=== PATIENT | male | born 1935 | race Caucasian/White ===

== ENCOUNTER 2017-11-10 19:44 | Inpatient (IN) | payer MEDICARE, SELFPAY ==
[2017-11-10 19:45] VITALS: BP 115/52; PULSE 58; RESP 19; TEMP 36.4; O2SAT 98; BMI 24.7
--- NOTE | 2017-11-10 20:00 | EKG12_ITS ---
Test Reason : Blood Pressure : / mmHG Vent. Rate : 060 BPM Atrial Rate : 060 BPM P-R Int : 182 ms QRS Dur : 088 ms QT Int : 456 ms P-R-T Axes : 041 -02 063 degrees QTc Int : 456 ms Normal sinus rhythm Normal ECG Confirmed by ZANE MITCHELL, ROSALIO ([id number]), editor news ZUNILDA SAUCEDO ([id number]) on 11/13/2017 2:05:42 PM Referred By: ALEK Confirmed By:ROSALIO DEGROOT MD
[2017-11-10 20:30] LABS: Absolute Lymphocyte Count 2.02 X10^3/ul (0.83-4.51); Absolute Neutrophil Count 8.3 X10^3/uL (2.0-7.7); Basophil# 0.03 X10^3/uL; Basophil% 0.3 % (0-1); Eosinophil# 0.27 X10^3/uL; Eosinophils% 2.4 % (0-5); Hematocrit 35.4 % (40-54); Hemoglobin 11.4 g/dl (13.0-16.5); Lymphocyte # 2.02 X10^3/ul (4.0); Lymphocyte % 18.1 % (19-41); Mean Corp Hgb Conc 32.2 g/gl (32-36); Mean Corpuscular Hgb 27.9 pg (27.0-32.0); Mean Corpuscular Volume 86.8 fL (80-94); Mean Platelet Vol. 10.6 fl (6.2-12.0); Monocyte# 0.51 X10^3/uL; Monocyte% 4.6 % (0-10); Neutrophil # 8.29 X10^3/uL (2.7-7.7); Neutrophil % 74.5 % (47-70); POSITIVE COUNT NO; POSITIVE DIFFERENTIAL NO; POSITIVE MORPHOLOGY NO; Platelet Count 200 K/mm3 (150-450); RBC Distribution Width CV 13.9 % (11.6-14.6); RBC Distribution Width SD 44.2 fl (35.1-43.9); Red Blood Count 4.08 M/mm3 (4.6-6.2); White Blood Count 11.1 K/mm3 (4.4-11.0)
--- NOTE | 2017-11-10 20:30 | RAD_ITS ---
STUDY: X-RAY CHEST REASON FOR EXAM: Male, 81 years old. WEAKNESS, SOB, FEELING LOUSY. TECHNIQUE: Single frontal view of the chest. COMPARISON: None. FINDINGS: Chronic appearing increased interstitial lung markings. There is an elevated left hemidiaphragm. There is no demonstrated pleural abnormality. Normal heart size. Normal mediastinum and nubia. Normal visualized pulmonary arteries. There is atherosclerotic calcification of the aortic arch with tortuosity. There are diffuse degenerative changes of the visualized thoracic spine. There is degenerative osteoarthritis of the bilateral shoulders. There is no demonstrated abnormality of the visualized soft tissue structures of the upper abdomen. RAD/Chest 1 View (Portable) IMPRESSION: There are no acute findings. Electronically Signed: Wagner Jha MD at 20:58 EDT , Service support ,
[2017-11-10 20:49] LABS: Anion Gap 10 (5-15); BUN 29 mg/dL (7-18); BUN/Creat Ratio 39.2 RATIO (10-20); Calcium,Total 8.3 mg/dL (8.5-10.1); Chloride 104 mmol/L (98-107); Creatinine, Serum 0.74 mg/dL (0.70-1.30); EST Glomerular Filtration Rate 108 mL/min (>60); Est Glom Filt Rate - Afr Amer 131 mL/min (>60); Estimated Creatinine Clearance 47.42 ml/min; Glucose 126 mg/dL (74-106); Potassium 3.6 mmol/L (3.5-5.1); Sodium Level 142 mmol/L (136-145)
--- NOTE | 2017-11-10 20:58 | ED.RN ---
pt had vagal episode after placing PIV- became nauseous, diaphoretic, HR paula to 30s and bp dropped to map in 50s. md velazquez
[2017-11-10 21:00] VITALS: BP 117/58; PULSE 60; RESP 22; O2SAT 98
[2017-11-10 21:21] VITALS: BP 131/55; BP 132/55; BP 138/59; PULSE 63; PULSE 64; PULSE 79
--- NOTE | 2017-11-10 21:58 | PCM.HP.STD ---
Problem List (1) Syncope and collapse Status: Acute (2) Hypertension Status: Chronic (3) Dyslipidemia Status: Chronic History of Present Illness Date of Admission: 11/10/17 Chief Complaint: Syncope today The patient is a 81 year old M with no significant past medical history but hypertension and dyslipidemia was brought in to ER after he had a syncopal episode that lasted for about 1-2 minutes. History taken from the patient's family and patient himself. Patient stood up from chair and walked about 30 yards and suddenly felt lightheaded, warm feeling and he passed out. He also was diaphoretic as per his and daughter, his eyes rolled up and his face was contorted. There was no myoclonic jerks repeated tonic-clonic seizure-like activity. He does not have history of epilepsy. Patient also has not eaten or drank water whole day. He is on HCTZ 25 mg daily at home. EMS vitals shows blood pressure 134/60 , Heart rate 71. EMS EKG strip shows normal sinus rhythm. [] In ED, as per the nurse, he he had bradycardia episode, heart rate in 40s and blood pressure dropped to 70s and was diaphoretic but he did not pass out. He denies having any cardiac lipid test. EKG shows normal sinus rhythm at 60 bpm. Chest x-ray does not show acute finding Past Medical History Past Medical History (Chronic Problems): Chronic Problems Hypertension (Chronic) Dyslipidemia (Chronic) Allergies No Known Allergies Allergy (Verified 11/10/17 19:51) Home Medications: Ambulatory Orders Medication Instructions Recorded Aspirin [Aspirin, Baby] 162 mg PO DAILY@0800 11/10/17 Hydrochlorothiazide [Hctz] 25 mg PO DAILY 11/10/17 Simvastatin 5 mg PO DAILY 11/10/17 Smoking Status: Former smoker Alcohol: None Drugs: None - *Family History Paternal History Items: No pertinent history Review of Systems Constitutional: Denies: Chills, Fever, Weight Change HEENT: Denies: Head Aches, Sinus Congestion, Sinus Drainage Cardiovascular: Reports: Light Headedness, Syncope. Denies: Chest Pain, Palpitations Respiratory: Denies: Cough, Shortness of breath at rest, Sputum production Gastrointestinal: Denies: Abdominal Pain, Nausea, Vomiting Genitourinary: Denies: Dysuria Musculoskeletal: Denies: Joint Pain, Joint Tenderness Skin: Denies: Rash, Wounds Neurological: Denies: Numbness, Tingling, Focal weakness Psychiatric: Denies: Anxiety, Depression, Homicidal Ideations, Suicidal Ideations Hematologic/ Lymphatic: Denies: Easy Bruising, Easy Bleeding VTE Information - Inpt Only VTE Present on Admission: No VTE Mechan Device Prophylaxis: SCD's VTE Pharm Prophylaxis ordered?: Yes Patient Problems: Active and Suspected Problems Syncope and collapse (Acute) - Physical Exam General: Alert, Oriented x3, Cooperative HEENT: Atraumatic, PERRLA, EOMI, Normocephalic Neck: Supple, No JVD, Negative Carotid Bruits Lungs: Clear to auscultation, Normal air movement Cardiovascular: Regular rate, Regular Rhythm, Normal S1, Normal S2, Murmur - Diastolic murmur present over aortic area and left sternal border. Possible S2 split Abdomen: Bowel Sounds Present, Soft, Non Tender Extremities: No edema, Capillary Refill Less than 3 Seconds Skin: No rashes, No breakdown Musculoskeletal: No Tenderness to Palpation of Joints or Extremities Neurological: Cranial nerves II-XII grossly intact Psych/Mental Status: Normal Affect, Appropriate Vital Signs Temp Pulse Resp BP Pulse Ox 97.6 F L 64 22 H 138/59 H 98 11/10/17 19:45 11/10/17 21:21 11/10/17 21:00 11/10/17 21:21 11/10/17 21:00 Oxygen Delivery Method Room Air Weight: 139 lb 12.8 oz Body Mass Index (BMI) 24.7 Laboratory Tests Past 24 Hrs 11/10/17 11/10/17 20:25 20:25 WBC 11.1 H RBC 4.08 L Hgb 11.4 L Hct 35.4 L MCV 86.8 MCH 27.9 MCHC 32.2 RDW 13.9 RDW Differential 44.2 H Plt Count 200 MPV 10.6 Immature Gran % (Auto) 0.100 Neut % (Auto) 74.5 H Lymph % (Auto) 18.1 L [place] % (Auto) 4.6 Eos % (Auto) 2.4 Baso % (Auto) 0.3 Absolute Neuts (auto) 8.3 H Absolute Lymphs (auto) 2.02 Total Counted Not Reportable Sodium 142 Potassium 3.6 Chloride 104 Carbon Dioxide 28.0 Anion Gap 10 BUN 29 H Creatinine 0.74 Estim Creat Clear Calc 47.42 Est GFR (MDRD) Af Amer 131 Est GFR (MDRD) Non-Af 108 BUN/Creatinine Ratio 39.2 H Glucose 126 H Calcium 8.3 L Troponin I < 0.02 Assessment/Plan Active and Suspected Problems Syncope and collapse (Acute) The patient is a 81 year old M with no significant past medical history but hypertension and dyslipidemia was brought in to ER after he had a syncopal episode that lasted for about 1-2 minutes. Patient stood up from chair and walked about 30 yards and suddenly felt lightheaded, warm feeling and he passed out. He also was diaphoretic as per his and daughter, his eyes rolled up and his face was contorted. There was no myoclonic jerks repeated tonic-clonic seizure-like activity. He does not have history of epilepsy. Patient was also nauseous and he had vomiting clear gastric content at home. Patient also has not eaten or drank water whole day. He is on HCTZ 25 mg daily at home. EMS vitals shows blood pressure 134/60 , Heart rate 71. EMS EKG strip shows normal sinus rhythm. [] In ED, as per the nurse, he he had bradycardia episode, heart rate in 40s and blood pressure dropped to 70s and was diaphoretic but he did not pass out. He denies having any cardiac related test. EKG shows normal sinus rhythm at 60 bpm. Chest x-ray does not show acute finding. 1. Syncope most probably vasovagal: It seems patient had vasovagal syncope in view of appropriate clinical setting including nausea, diaphoretic, bradycardia and hypotension. Patient is being admitted in PCU. Serial cardiac enzymes. 2D echo. ER physician Dr. Porter discussed with Dr. Shepherd and he agreed to see the patient. Patient's is mildly dehydrated and started on IV fluid normal saline 100/h. Orthostatic vitals in the ER does not show drop in blood pressure but heart rate went up from 64-79 on standing; mild dehydration. Repeat orthostatic vitals tomorrow a.m. 2. Chronic comorbidities include hypertension and dyslipidemia: Fasting peripheral tomorrow a.m. Hold HCTZ. DVT prophylaxis: On Lovenox 40 mils subcu daily and bilateral SCDs. Laboratory Results 11/10/17 20:25: WBC 11.1 H, RBC 4.08 L, Hgb 11.4 L, Hct 35.4 L, MCV 86.8, MCH 27.9, MCHC 32.2, RDW 13.9, RDW Differential 44.2 H, Plt Count 200, MPV 10.6, Immature Gran % (Auto) 0.100, Neut % (Auto) 74.5 H, Lymph % (Auto) 18.1 L, [place] % (Auto) 4.6, Eos % (Auto) 2.4, Baso % (Auto) 0.3, Absolute Neuts (auto) 8.3 H, Absolute Lymphs (auto) 2.02, Total Counted Not Reportable 11/10/17 20:25: Sodium 142, Potassium 3.6, Chloride 104, Carbon Dioxide 28.0, Anion Gap 10, BUN 29 H, Creatinine 0.74, Estim Creat Clear Calc 47.42, Est GFR (MDRD) Af Amer 131, Est GFR (MDRD) Non-Af 108, BUN/Creatinine Ratio 39.2 H, Glucose 126 H, Calcium 8.3 L, Troponin I < 0.02 Clinical Impression(s) from Imaging Studies Chest X-Ray 11/10/17 20:30 IMPRESSION: There are no acute findings. Electronically Signed: Wagner Jha MD at 20:58 EDT , Service support , This note was generated with [employer] dictation software. Every effort was made to ensure accuracy, however computerized special education science teacher mistakes may persist. Code Visit OBSV E&M: 63078 Initial observation care L3
--- NOTE | 2017-11-10 22:13 | HP.PCM_ITS ---
Problem List (1) Syncope and collapse Status: Acute (2) Hypertension Status: Chronic (3) Dyslipidemia Status: Chronic History of Present Illness Date of Admission: 11/10/17 Chief Complaint: Syncope today The patient is a 81 year old M with no significant past medical history but hypertension and dyslipidemia was brought in to ER after he had a syncopal episode that lasted for about 1-2 minutes. History taken from the patient's family and patient himself. Patient stood up from chair and walked about 30 yards and suddenly felt lightheaded, warm feeling and he passed out. He also was diaphoretic as per his and daughter, his eyes rolled up and his face was contorted. There was no myoclonic jerks repeated tonic-clonic seizure-like activity. He does not have history of epilepsy. Patient also has not eaten or drank water whole day. He is on HCTZ 25 mg daily at home. EMS vitals shows blood pressure 134/60 , Heart rate 71. EMS EKG strip shows normal sinus rhythm. [] In ED, as per the nurse, he he had bradycardia episode, heart rate in 40s and blood pressure dropped to 70s and was diaphoretic but he did not pass out. He denies having any cardiac lipid test. EKG shows normal sinus rhythm at 60 bpm. Chest x-ray does not show acute finding Past Medical History Past Medical History (Chronic Problems): Chronic Problems Hypertension (Chronic) Dyslipidemia (Chronic) Allergies No Known Allergies Allergy (Verified 11/10/17 19:51) Home Medications: Ambulatory Orders Medication Instructions Recorded Aspirin [Aspirin, Baby] 162 mg PO DAILY@0800 11/10/17 Hydrochlorothiazide [Hctz] 25 mg PO DAILY 11/10/17 Simvastatin 5 mg PO DAILY 11/10/17 Smoking Status: Former smoker Alcohol: None Drugs: None - *Family History Paternal History Items: No pertinent history Review of Systems Constitutional: Denies: Chills, Fever, Weight Change HEENT: Denies: Head Aches, Sinus Congestion, Sinus Drainage Cardiovascular: Reports: Light Headedness, Syncope. Denies: Chest Pain, Palpitations Respiratory: Denies: Cough, Shortness of breath at rest, Sputum production Gastrointestinal: Denies: Abdominal Pain, Nausea, Vomiting Genitourinary: Denies: Dysuria Musculoskeletal: Denies: Joint Pain, Joint Tenderness Skin: Denies: Rash, Wounds Neurological: Denies: Numbness, Tingling, Focal weakness Psychiatric: Denies: Anxiety, Depression, Homicidal Ideations, Suicidal Ideations Hematologic/ Lymphatic: Denies: Easy Bruising, Easy Bleeding VTE Information - Inpt Only VTE Present on Admission: No VTE Mechan Device Prophylaxis: SCD's VTE Pharm Prophylaxis ordered?: Yes Patient Problems: Active and Suspected Problems Syncope and collapse (Acute) - Physical Exam General: Alert, Oriented x3, Cooperative HEENT: Atraumatic, PERRLA, EOMI, Normocephalic Neck: Supple, No JVD, Negative Carotid Bruits Lungs: Clear to auscultation, Normal air movement Cardiovascular: Regular rate, Regular Rhythm, Normal S1, Normal S2, Murmur - Diastolic murmur present over aortic area and left sternal border. Possible S2 split Abdomen: Bowel Sounds Present, Soft, Non Tender Extremities: No edema, Capillary Refill Less than 3 Seconds Skin: No rashes, No breakdown Musculoskeletal: No Tenderness to Palpation of Joints or Extremities Neurological: Cranial nerves II-XII grossly intact Psych/Mental Status: Normal Affect, Appropriate Vital Signs Temp Pulse Resp BP Pulse Ox 97.6 F L 64 22 H 138/59 H 98 11/10/17 19:45 11/10/17 21:21 11/10/17 21:00 11/10/17 21:21 11/10/17 21:00 Oxygen Delivery Method Room Air Weight: 139 lb 12.8 oz Body Mass Index (BMI) 24.7 Laboratory Tests Past 24 Hrs 11/10/17 11/10/17 20:25 20:25 WBC 11.1 H RBC 4.08 L Hgb 11.4 L Hct 35.4 L MCV 86.8 MCH 27.9 MCHC 32.2 RDW 13.9 RDW Differential 44.2 H Plt Count 200 MPV 10.6 Immature Gran % (Auto) 0.100 Neut % (Auto) 74.5 H Lymph % (Auto) 18.1 L [place] % (Auto) 4.6 Eos % (Auto) 2.4 Baso % (Auto) 0.3 Absolute Neuts (auto) 8.3 H Absolute Lymphs (auto) 2.02 Total Counted Not Reportable Sodium 142 Potassium 3.6 Chloride 104 Carbon Dioxide 28.0 Anion Gap 10 BUN 29 H Creatinine 0.74 Estim Creat Clear Calc 47.42 Est GFR (MDRD) Af Amer 131 Est GFR (MDRD) Non-Af 108 BUN/Creatinine Ratio 39.2 H Glucose 126 H Calcium 8.3 L Troponin I < 0.02 Assessment/Plan Active and Suspected Problems Syncope and collapse (Acute) The patient is a 81 year old M with no significant past medical history but hypertension and dyslipidemia was brought in to ER after he had a syncopal episode that lasted for about 1-2 minutes. Patient stood up from chair and walked about 30 yards and suddenly felt lightheaded, warm feeling and he passed out. He also was diaphoretic as per his and daughter, his eyes rolled up and his face was contorted. There was no myoclonic jerks repeated tonic-clonic seizure-like activity. He does not have history of epilepsy. Patient was also nauseous and he had vomiting clear gastric content at home. Patient also has not eaten or drank water whole day. He is on HCTZ 25 mg daily at home. EMS vitals shows blood pressure 134/60 , Heart rate 71. EMS EKG strip shows normal sinus rhythm. [] In ED, as per the nurse, he he had bradycardia episode, heart rate in 40s and blood pressure dropped to 70s and was diaphoretic but he did not pass out. He denies having any cardiac related test. EKG shows normal sinus rhythm at 60 bpm. Chest x-ray does not show acute finding. 1. Syncope most probably vasovagal: It seems patient had vasovagal syncope in view of appropriate clinical setting including nausea, diaphoretic, bradycardia and hypotension. Patient is being admitted in PCU. Serial cardiac enzymes. 2D echo. ER physician Dr. Porter discussed with Dr. Shepherd and he agreed to see the patient. Patient's is mildly dehydrated and started on IV fluid normal saline 100/h. Orthostatic vitals in the ER does not show drop in blood pressure but heart rate went up from 64-79 on standing; mild dehydration. Repeat orthostatic vitals tomorrow a.m. 2. Chronic comorbidities include hypertension and dyslipidemia: Fasting peripheral tomorrow a.m. Hold HCTZ. DVT prophylaxis: On Lovenox 40 mils subcu daily and bilateral SCDs. Laboratory Results 11/10/17 20:25: WBC 11.1 H, RBC 4.08 L, Hgb 11.4 L, Hct 35.4 L, MCV 86.8, MCH 27.9, MCHC 32.2, RDW 13.9, RDW Differential 44.2 H, Plt Count 200, MPV 10.6, Immature Gran % (Auto) 0.100, Neut % (Auto) 74.5 H, Lymph % (Auto) 18.1 L, [place] % (Auto) 4.6, Eos % (Auto) 2.4, Baso % (Auto) 0.3, Absolute Neuts (auto) 8.3 H, Absolute Lymphs (auto) 2.02, Total Counted Not Reportable 11/10/17 20:25: Sodium 142, Potassium 3.6, Chloride 104, Carbon Dioxide 28.0, Anion Gap 10, BUN 29 H, Creatinine 0.74, Estim Creat Clear Calc 47.42, Est GFR ( MDRD) Af Amer 131, Est GFR (MDRD) Non-Af 108, BUN/Creatinine Ratio 39.2 H, Glucose 126 H, Calcium 8.3 L, Troponin I < 0.02 Clinical Impression(s) from Imaging Studies Chest X-Ray 11/10/17 20:30 IMPRESSION: There are no acute findings. Electronically Signed: Wagner Jha MD at 20:58 EDT , Service support , This note was generated with [employer] dictation software. Every effort was made to ensure accuracy, however computerized medical transcription editor mistakes may persist. Code Visit OBSV E&M: 67269 Initial observation care L3
[2017-11-10 22:39] VITALS: BP 131/64; PULSE 74; RESP 16; TEMP 36.6; O2SAT 97
[2017-11-10 22:40] VITALS: BP 154/64
[2017-11-10 22:45] VITALS: PULSE 76
--- NOTE | 2017-11-10 22:59 | ED.DCSUM_ITS ---
- ER Visit Summary Date of Service: 11/10/17 Chief Complaint: Syncope History of Present Illness: The patient is a [address] Del Real in [place]. He reports that he was at an event where he had been sitting for quite some time. He stood up to walk it on the floor and been standing for approximately 2 minutes. He became very lightheaded and felt as though is going to pass out. Family had him sit down. They report that shortly thereafter his eyes rolled back in his mouth was contorted. They report that this lasted approximately 10 seconds. Patient did not have a postictal episode. Did not bite his tongue. He had no urinary incontinence. Patient denied any preceding chest pain, palpitations, shortness of breath, or abdominal pain. However, during the episode he reports that he felt weak, nauseated, and vomited once. No blood in his emesis. He has never had anything like this before. Physical Examination: Vitals: 97.6, 115/52, 58, 19, 98% on room air which is not hypoxic. General: Well-nourished and well-developed. Head: Normocephalic atraumatic. Neck: Supple, no lymphadenopathy. No JVD. Nontender. Cardiovascular: Regular rate and rhythm. 2 out of 6 systolic murmur. Respiratory: No respiratory distress. Clear to auscultation bilaterally. Abdominal: Soft, nontender, nondistended, normal bowel sounds. No guarding, rebound, or peritoneal signs. Back: Nontender. Extremities: Nontender, no edema. Skin: Normal color, no rash. Neurologic: Alert and oriented ?3. Cranial nerves II through XII are intact. Normal strength and sensation. Psych: Normal affect. Test Results: EKG is sinus at 60 with no acute changes. There is no old EKG for comparison. Troponin is negative. Chem-7 is more for glucose 126, BUN of 29, calcium 8.3. CBC is marked for white count of 11.1 with 75 segmented neutrophils and 18 lymphocytes. H&H is 11.4 35.4. Chest x-ray shows eventration of left hemidiaphragm and no acute disease. Emergency Department Course and Treatment: While having the IV placed the patient bradycardia down into the 30s and his pressure dropped into the 70s. I suspect that this was vagal in etiology. However, he had a second episode while in the emergency department where he became very nauseated and lightheaded. This was not accompanied by any insult that would explain a vagal episode. Treatment Plan: Given the patient's age I feel that he warrants admission to the hospital and observation for a dysrhythmia as well as further evaluation. He was discussed with Dr. Villalobos. He was also discussed with Dr. Shepherd who asked that the patient be ruled out and have an echocardiogram. If these are unremarkable then he would need a stress echo prior to discharge. Disposition: To home in improved and stable condition. Impression: 1. Syncope. 2. Intermittent bradycardia. This note was generated with [employer] dictation software. It may contain incorrect words, spelling, and punctuation that were not noted in review of the chart prior to signing ED Disposition - Plan for ED Patient: Disposition: Acute [facility] Chief Complaint: Syncope
[2017-11-10] MEDS: 0.9% Normal Saline 1,000 ML 100 ML IV (23:05)
[2017-11-10] MEDS: Enoxaparin 40 MG/0.4 ML Syringe SC (23:05)
[2017-11-10 23:11] VITALS: BMI 24.4; BMI 24.8
[2017-11-11] VITALS (20 sets, daily range): BP systolic 81–119; BP diastolic 42–69; PULSE 35–103; RESP 12–18; TEMP 36.9–37.9; O2SAT 94–100
[2017-11-11] MEDS: Ondansetron 4 MG/2 ML Vial IV (01:15)
[2017-11-11] MEDS: 0.9% NaCl Peripheral Flush Adult/Peds IV ×3 (01:15→13:07)
--- NOTE | 2017-11-11 01:17 | NURSING ---
pt HR dropped to 35 for a few seconds then jumped up to 110s. Patient had emesis in bed and was found to be diaphoretic, lightheaded, and dizzy. Up to RR with aide and found to have a large amount of bloody stool.
[2017-11-11 02:01] LABS: Hematocrit 26.9 % (40-54); Hemoglobin 8.8 g/dl (13.0-16.5)
[2017-11-11] MEDS: 0.9% Normal Saline 1,000 ML 500 ML IV (02:01)
--- NOTE | 2017-11-11 03:27 | NURSING ---
Attempted orthostatic vital signs at this time. BP became dizzy when sitting up
[2017-11-11] MEDS: 0.9% Normal Saline 1,000 ML 999 ML IV (04:18)
[2017-11-11 05:16] LABS: Absolute Lymphocyte Count 0.82 X10^3/ul (0.83-4.51); Absolute Neutrophil Count 12.9 X10^3/uL (2.0-7.7); Basophil# 0.01 X10^3/uL; Basophil% 0.1 % (0-1); Eosinophil# 0.01 X10^3/uL; Eosinophils% 0.1 % (0-5); Hematocrit 22.8 % (40-54); Hemoglobin 7.3 g/dl (13.0-16.5); Lymphocyte # 0.82 X10^3/ul (4.0); Lymphocyte % 5.6 % (19-41); Mean Corpuscular Hgb 28.6 pg (27.0-32.0); Mean Corpuscular Volume 89.4 fL (80-94); Mean Platelet Vol. 11.3 fl (6.2-12.0); Monocyte# 0.89 X10^3/uL; Monocyte% 6.1 % (0-10); Neutrophil # 12.93 X10^3/uL (2.7-7.7); Neutrophil % 87.9 % (47-70); Platelet Count 159 K/mm3 (150-450); RBC Distribution Width CV 13.6 % (11.6-14.6); RBC Distribution Width SD 42.5 fl (35.1-43.9); Red Blood Count 2.55 M/mm3 (4.6-6.2); White Blood Count 14.7 K/mm3 (4.4-11.0)
[2017-11-11 05:17] LABS: POSITIVE COUNT NO; POSITIVE DIFFERENTIAL NO; POSITIVE MORPHOLOGY NO
[2017-11-11 05:55] LABS: International Normalized Ratio 1.3; Prothrombin Time (Protime)PT. 16.5 SECONDS (11.7-14.9)
--- NOTE | 2017-11-11 05:55 | ECHOD_ITS ---
Reason For Study: syncope Procedure This was a 2D Doppler, Color Flow transthoracic echocardiogram. The study was technically difficult. Due to diminshed accoustic windows. Exam performed portable in patient room. Left Ventricle Normal LV size. Left ventricular systolic function is normal. The estimated ejection fraction is 65 %. Transmitral diastolic flow velocities suggest mild (stage 1) diastolic dysfunction (reversed pattern). No regional wall motion abnormalities noted. Tricuspid Valve Normal tricuspid valve. Mild (1+) tricuspid valve insufficiency. Pulmonary artery systolic pressure is 35 mmHg. Aortic Valve Trisinus/trileaflet aortic valve. Peak aortic valve gradient 28 mmHg. Mean aortic valve gradient 14 mmHg. Mild aortic stenosis. Mild (1+) eccentric aortic valve insufficiency. Pulmonic Valve Normal pulmonic valve. Great Vessels Normal aortic root. The pulmonary artery is normal size. Normal inferior vena cava. Pericardium/Pleural No pericardial effusion. MMode/2D Measurements & Calculations LVIDd: 3.5 cm IVSd: 0.99 cm LVOT diam: 2.1 cm LVIDs: 2.5 cm LVPWd: 0.87 cm LVOT area: 3.4 cm2 RVDd: 3.1 cm FS: 30.7 % LAV(MOD-bp): 65.3 ml LA A4 area: 20.7 cm2 LAV(MOD-bp) Indexed: 38.6 ml/m2 LAV(MOD-sp2): 61.7 ml LAV(MOD-sp4): 61.9 ml Doppler Measurements & Calculations MV E max rojas: 54.2 cm/sec Lat Peak E' Rojas: 13.3 cm/sec Med Peak E' Rojas: 9.6 cm/sec MV A max rojas: 69.6 cm/sec E/E' lat: 4.1 E/E' med: 5.7 MV E/A: 0.78 Ao V2 max: 262.8 cm/sec AI max rojas: 415.4 cm/sec LV V1 max: 143.2 cm/sec Ao max P.6 mmHg AI max P.2 mmHg LV V1 max P.2 mmHg Ao V2 mean: 171.4 cm/sec AI dec slope: 344.5 cm/sec2 LV V1 mean P.0 mmHg Ao mean P.4 mmHg AI P1/2t: 353.2 msec LV V1 mean: 93.6 cm/sec Ao V2 VTI: 50.9 cm LV V1 VTI: 29.0 cm THOM(I,D): 1.9 cm2 THOM(V,D): 1.8 cm2 SV(LVOT): 98.2 ml PA V2 max: 135.4 cm/sec TR max rojas: 281.2 cm/sec TR max P.6 mmHg Interpretation Summary Normal LV size. The estimated ejection fraction is 65 %. Transmitral diastolic flow velocities suggest mild (stage 1) diastolic dysfunction (reversed pattern). Left ventricular systolic function is normal. Mild aortic stenosis. Mild (1+) eccentric aortic valve insufficiency. Mild (1+) tricuspid valve insufficiency. Ordering Physician: Harsha Villalobos Referring Physician: Jerzy Hubbard Performed By: Yolanda Parker, ARIADNE, RVT
[2017-11-11 06:19] LABS: Anion Gap 6 (5-15); BUN 33 mg/dL (7-18); BUN/Creat Ratio 55.5 RATIO (10-20); Chloride 112 mmol/L (98-107); Cholesterol 63 mg/dL (200); EST Glomerular Filtration Rate 139 mL/min (>60); Est Glom Filt Rate - Afr Amer 168 mL/min (>60); Estimated Creatinine Clearance 49.33 ml/min; Glucose 118 mg/dL (74-106); High Density Lipoprotein 20 mg/dL; Potassium 4.2 mmol/L (3.5-5.1); Sodium Level 145 mmol/L (136-145); Thyroid Stim Hormone (TSH) 0.57 uIU/mL (0.358-3.74); Triglycerides 109 mg/dL; Very Low Density Lipoprotein 22 mg/dL (5-40)
--- NOTE | 2017-11-11 08:23 | PCM.CONS.GEN ---
Reason for Consult Date of Consultation: 11/11/17 History of Present Illness: The patient is a 81 year old M who became syncopal and vomited coffee grounds [facility] Both a PCP and the nurse taking care of the patient today provided emergency care to the the patient at the event. He was transported by EMS to [facility]. He has a history of ASA use - 81mg x 2 daily and took lodine last week for lower back pain. since admission, his Hgb has dropped from 11 to 7. He is being transfused currently. his INR is normal. He still feels dizzy when he sits up. He denies melena prior to this event. He has had melena and maroon stools x3 since admission. He has not had a prior upper or lower endoscopy Past Medical History Past Medical History (Chronic Problems): Chronic Problems Hypertension (Chronic) Dyslipidemia (Chronic) Allergies No Known Allergies Allergy (Verified 11/10/17 19:51) Home Medications: Ambulatory Orders Medication Instructions Recorded Aspirin [Aspirin, Baby] 162 mg PO DAILY@0800 11/10/17 Hydrochlorothiazide [Hctz] 25 mg PO DAILY 11/10/17 RX: Simvastatin 5 mg PO DAILY 11/10/17 Amlodipine Besylate [Norvasc] 5 mg PO DAILY 11/11/17 DiphenhydrAMINE [Benadryl] 25 mg PO QHS PRN PRN 11/11/17 Smoking Status: Never smoker Alcohol: None Drugs: None - *Family History Paternal History Items: No pertinent history Review of Systems Constitutional: Denies: Chills, Fever, Weight Change HEENT: Denies: Head Aches, Sinus Congestion, Sinus Drainage Cardiovascular: Denies: Chest Pain, Palpitations Respiratory: Denies: Cough, Shortness of breath at rest, Sputum production Gastrointestinal: Reports: Hematemesis, Melena. Denies: Abdominal Pain, Nausea, Vomiting Genitourinary: Denies: Dysuria Musculoskeletal: Denies: Joint Pain, Joint Tenderness Skin: Denies: Rash, Wounds Neurological: Denies: Numbness, Tingling, Focal weakness Psychiatric: Denies: Anxiety, Depression, Homicidal Ideations, Suicidal Ideations Hematologic/ Lymphatic: Denies: Easy Bruising, Easy Bleeding Patient Problems: Active and Suspected Problems Syncope and collapse (Acute) - Physical Exam General: Alert, Oriented x3, Cooperative, - - pale HEENT: Atraumatic Lungs: Clear to auscultation, Normal air movement Cardiovascular: Regular rate, No murmurs Abdomen: Bowel Sounds Present, Soft, Non Tender, Hyperactive Bowel Sounds Vital Signs Temp Pulse Resp BP Pulse Ox 98.9 F 87 16 95/42 L 98 11/11/17 07:06 11/11/17 07:06 11/11/17 07:06 11/11/17 07:06 11/11/17 07:06 Oxygen Delivery Method Room Air Intake and Output for Last 24 Hours 11/09/17 11/10/17 11/11/17 23:59 23:59 23:59 Intake Total 2207.6 / 2207.6 Output Total 275 / 275 Balance 1932.6 / 1932.6 Assessment/Plan Active and Suspected Problems Syncope and collapse (Acute) GI bleed - likely gastric ulcer. The patient is currently receiving PRBC and has IV PPI ordered. We will continue his resuscitation. I will plan for upper endoscopy following resection. If he becomes increasingly hypotensive, will then perform emergency upper endoscopy. The patient understands the risks, benefits, possible complications and alternatives and agrees to the procedure. We will plan for colonoscopy as an outpatient at a later date
--- NOTE | 2017-11-11 08:30 | CON.PCM_ITS ---
Reason for Consult Date of Consultation: 11/11/17 History of Present Illness: The patient is a 81 year old M who became syncopal and vom[facility] coffee [facility] Both a PCP and the nurse taking care of the patient today provided emergency care to the the patient at the event. He was transported by EMS to [facility]. He has a history of ASA use - 81mg x 2 daily and took lodine last week for lower back pain. since admission, his Hgb has dropped from 11 to 7. He is being transfused currently. his INR is normal. He still feels dizzy when he sits up. He denies melena prior to this event. He has had melena and maroon stools x3 since admission. He has not had a prior upper or lower endoscopy Past Medical History Past Medical History (Chronic Problems): Chronic Problems Hypertension (Chronic) Dyslipidemia (Chronic) Allergies No Known Allergies Allergy (Verified 11/10/17 19:51) Home Medications: Ambulatory Orders Medication Instructions Recorded Aspirin [Aspirin, Baby] 162 mg PO DAILY@0800 11/10/17 Hydrochlorothiazide [Hctz] 25 mg PO DAILY 11/10/17 RX: Simvastatin 5 mg PO DAILY 11/10/17 Amlodipine Besylate [Norvasc] 5 mg PO DAILY 11/11/17 DiphenhydrAMINE [Benadryl] 25 mg PO QHS PRN PRN 11/11/17 Smoking Status: Never smoker Alcohol: None Drugs: None - *Family History Paternal History Items: No pertinent history Review of Systems Constitutional: Denies: Chills, Fever, Weight Change HEENT: Denies: Head Aches, Sinus Congestion, Sinus Drainage Cardiovascular: Denies: Chest Pain, Palpitations Respiratory: Denies: Cough, Shortness of breath at rest, Sputum production Gastrointestinal: Reports: Hematemesis, Melena. Denies: Abdominal Pain, Nausea , Vomiting Genitourinary: Denies: Dysuria Musculoskeletal: Denies: Joint Pain, Joint Tenderness Skin: Denies: Rash, Wounds Neurological: Denies: Numbness, Tingling, Focal weakness Psychiatric: Denies: Anxiety, Depression, Homicidal Ideations, Suicidal Ideations Hematologic/ Lymphatic: Denies: Easy Bruising, Easy Bleeding Patient Problems: Active and Suspected Problems Syncope and collapse (Acute) - Physical Exam General: Alert, Oriented x3, Cooperative, - - pale HEENT: Atraumatic Lungs: Clear to auscultation, Normal air movement Cardiovascular: Regular rate, No murmurs Abdomen: Bowel Sounds Present, Soft, Non Tender, Hyperactive Bowel Sounds Vital Signs Temp Pulse Resp BP Pulse Ox 98.9 F 87 16 95/42 L 98 11/11/17 07:06 11/11/17 07:06 11/11/17 07:06 11/11/17 07:06 11/11/17 07:06 Oxygen Delivery Method Room Air Intake and Output for Last 24 Hours 11/09/17 11/10/17 11/11/17 23:59 23:59 23:59 Intake Total 2207.6 / 2207.6 Output Total 275 / 275 Balance 1932.6 / 1932.6 Assessment/Plan Active and Suspected Problems Syncope and collapse (Acute) GI bleed - likely gastric ulcer. The patient is currently receiving PRBC and has IV PPI ordered. We will continue his resuscitation. I will plan for upper endoscopy following resection. If he becomes increasingly hypotensive, will then perform emergency upper endoscopy. The patient understands the risks, benefits, possible complications and alternatives and agrees to the procedure. We will plan for colonoscopy as an outpatient at a later date
[2017-11-11] MEDS: 0.9% Normal Saline 1,000 ML 100 ML IV ×2 (08:59→20:39)
--- NOTE | 2017-11-11 11:56 | PCM.PROGNOTE ---
Patient Problems: Active and Suspected Problems Syncope and collapse (Acute) Subjective: Patient seen and examined. States he did not sleep overnight due to severe dizziness when closing his eyes. Denies chest pain, shortness of breath. Denies nausea, vomiting. Had a bowel movement last evening which he states was red in color. Denies further bowel movement. Denies abdominal pain. Patient states he feels improved currently without further dizziness or lightheadedness. - Physical Exam General: Alert, Oriented x3, Cooperative HEENT: Atraumatic, PERRLA, EOMI, Normocephalic Neck: Supple, No JVD, Negative Carotid Bruits Lungs: Clear to auscultation, Normal air movement Cardiovascular: Regular rate, Regular Rhythm, Normal S1, Normal S2, Murmur Abdomen: Bowel Sounds Present, Soft, Non Tender, Non-Distended Extremities: No clubbing, No cyanosis, No edema, Capillary Refill Less than 3 Seconds Skin: No rashes, No breakdown Musculoskeletal: No Tenderness to Palpation of Joints or Extremities Neurological: Cranial nerves II-XII grossly intact Psych/Mental Status: Normal Affect, Appropriate Vital Signs Temp Pulse Resp BP Pulse Ox 100.3 F H 83 18 100/48 L 95 11/11/17 10:45 11/11/17 10:45 11/11/17 10:45 11/11/17 10:45 11/11/17 10:45 Oxygen Delivery Method Room Air Weight: 63.049 kg Intake and Output for Last 24 Hours 11/09/17 11/10/17 11/11/17 23:59 23:59 23:59 Intake Total 2607.6 / 2607.6 Output Total 275 / 275 Balance 2332.6 / 2332.6 Laboratory Tests Past 24 Hrs 11/11/17 10:25 Troponin I < 0.02 Medical Necessity - Tobacco Use Smoking Status: Never smoker Assessment/Plan Active and Suspected Problems Syncope and collapse (Acute) Patient is an 81-year-old male admitted 11/10/17 due to syncopal episode. He has a past medical history of hypertension and hyperlipidemia. 1. Acute blood loss anemia secondary to suspected upper GI bleed-Dr. Liu consulted. Suspecting gastric ulcer. Continue IV PPI. Patient receiving 2 units packed red blood cells for hemoglobin of 7.3. Repeat H&H this afternoon and again in the morning. Plan for EGD tomorrow and colonoscopy as outpatient at a later date. 2. Syncope-suspect secondary to #1. Troponin negative ?4. Orthostatic vitals negative. Echocardiogram ordered for morning. 3. Hypertension-antihypertensive regimen on hold given hypotension. Resume home amlodipine and HCTZ regimen when appropriate. 4. Hyperlipidemia-continue statin. DVT prophylaxis-SCDs, pharmacologic prophylaxis contraindicated given acute bleed. This patient was seen by PAMELA Downing under the supervision of Dr. Lake.
[2017-11-11 14:35] LABS: Hematocrit 24.4 % (40-54); Hemoglobin 8.5 g/dl (13.0-16.5)
[2017-11-11 18:59] LABS: Hematocrit 25.7 % (40-54); Hemoglobin 8.8 g/dl (13.0-16.5)
[2017-11-12] VITALS (28 sets, daily range): BP systolic 117–143; BP diastolic 37–63; PULSE 63–91; RESP 14–18; TEMP 36.4–37.3; O2SAT 93–99; BMI 23.8
--- NOTE | 2017-11-12 | IMM_PTH ---
PATIENT: ZINA REDMOND LOC: [facility] U#:[id number] AGE/SX: 81/M ROOM: [facility] RE11/11/[address]: Dr. Mike Dawn DO : 1935 BED: 1 DIS: 11/13/2017 SPEC #: [id number] RECD: 11/14/17 11:16 STATUS: SOUT REQ #: [id number] IZZY: 11/12/17 00:[address]: Stephen Liu DEPT: IMMUNOHISTOCHEMISTRY RECD BY: Joycelyn Brown ENTERED: 11/14/17 11:17 SP TYPE: IMMUNO OTHR DR: MD Dr. Mike Booker DO Dr. Prakash Chand, MD Dr. Patrick Furness, MD Dr. Richard Guttman, MD Tissues: Stomach, NOS Procedures: H Pylori (initial) Comments: @ Ordering doctor for H.PYLORI edited from to DR.RGUTTM Mejia by KEKE at 11/14/17 1125 @ Submitting doctor edited from to DR.RGUTTM Mejia by KEKE at 11/14/17 1125 PHYSICIAN & INSTITUTION [place] [id number] SPECIMEN INFORMATION: Tissue Source: Antral biopsy Clinical Info: UGIB Specimen Number: [id number] CPT code: 24190 METHODOLOGY: Deparaffinized sections of prefer/formalin-fixed tissue or PAP/DQ stained slides are incubated with monoclonal/polyclonal antibodies/oligonucleotide probes. Localization is made via biotin free immunoperoxidase method. Appropriate controls are performed and reacted as expected. Results on target cell population are indicated in the following table: RESULTS: ANTIBODY / CLONE RESULT H Pylori (polyclonal) negative These tests were developed and their performance characteristics determined by [facility]. They may not have been cleared or approved by the U.S. Food and Drug Administration. The FDA has determined that such clearance or approval is not necessary. INTERPRETATION: Antrum, biopsy: Negative for Helicobacter pylori organisms. OLGA:antoinette 11/15/17
--- NOTE | 2017-11-12 | EGD_PTH ---
PATIENT: ZINA REDMOND LOC: [facility] U#:[id number] AGE/SX: 81/M ROOM: [facility] RE11/11/[address]: Dr. Mike Dawn DO : 1935 BED: 1 DIS: 11/13/2017 SPEC #: [id number] RECD: 11/12/17 08:11 STATUS: GARRICK REQ #: [id number] IZZY: 11/12/17 00:[address]: Stephen Liu DEPT: SURGICAL PATHOLOGY RECD BY: Raza Hernandez ENTERED: 11/13/17 08:11 SP TYPE: EGD BIOPSY OTHR DR: MD Dr. Mike Booker DO Dr. Prakash Chand, MD Dr. Patrick Furness, MD Dr. Richard Guttman, MD Tissues: Gastric mucous membrane Procedures: Surgery Specimen Level IV Comments: @ Ordering doctor for SUIV edited from to DR.RGUTTM Mejia by KEKE at 11/14/17 1044 @ Submitting doctor edited from to @ by HAYDEROD at 11/14/17 1044 HEADER OPERATION: EGD PRE-OP DIAGNOSIS: UGIB TISSUE SUBMITTED: Antral biopsy for path MICROSCOPIC DIAGNOSIS Antrum, biopsy: Mild gastritis. OLGA:antoinette 11/14/17 COMMENT The results of immunohistochemistry for Helicobacter pylori will be reported separately ([id number]). MICROSCOPIC DESCRIPTION Slides are reviewed. The specimen shows fragments of gastric mucosa with chronic inflammatory cell infiltrates in the lamina propria consisting of lymphocytes and plasma cells, consistent with mild chronic gastritis. GROSS DESCRIPTION Received in fixative is one container labeled with the patient's name and designated antrum. The specimen consists of one irregular fragment of light wilkins soft tissue that measures 0.4 x 0.2 x 0.1 cm. The specimen is totally submitted in one cassette. / RY:antoinette 11/13/17 TC:3 [facility]: [id number]
[2017-11-12 00:26] LABS: Hematocrit 23.2 % (40-54); Hemoglobin 7.8 g/dl (13.0-16.5)
[2017-11-12 06:45] LABS: Absolute Lymphocyte Count 2.03 X10^3/ul (0.83-4.51); Absolute Neutrophil Count 5.6 X10^3/uL (2.0-7.7); Basophil# 0.02 X10^3/uL; Basophil% 0.2 % (0-1); Eosinophils% 3.4 % (0-5); Hematocrit 27.9 % (40-54); Hemoglobin 9.2 g/dl (13.0-16.5); Lymphocyte # 2.03 X10^3/ul (4.0); Lymphocyte % 22.9 % (19-41); Mean Corpuscular Hgb 28.7 pg (27.0-32.0); Mean Corpuscular Volume 86.9 fL (80-94); Mean Platelet Vol. 10.7 fl (6.2-12.0); Monocyte# 0.89 X10^3/uL; Neutrophil # 5.62 X10^3/uL (2.7-7.7); Neutrophil % 63.3 % (47-70); Platelet Count 119 K/mm3 (150-450); RBC Distribution Width CV 14.6 % (11.6-14.6); RBC Distribution Width SD 44.5 fl (35.1-43.9); Red Blood Count 3.21 M/mm3 (4.6-6.2); White Blood Count 8.9 K/mm3 (4.4-11.0)
[2017-11-12 06:55] LABS: POSITIVE COUNT NO; POSITIVE DIFFERENTIAL NO; POSITIVE MORPHOLOGY NO
[2017-11-12 06:58] LABS: Anion Gap 7 (5-15); BUN 24 mg/dL (7-18); BUN/Creat Ratio 40.4 RATIO (10-20); Calcium,Total 7.4 mg/dL (8.5-10.1); Chloride 116 mmol/L (98-107); Creatinine, Serum 0.59 mg/dL (0.70-1.30); EST Glomerular Filtration Rate 139 mL/min (>60); Est Glom Filt Rate - Afr Amer 168 mL/min (>60); Estimated Creatinine Clearance 49.33 ml/min; Glucose 86 mg/dL (74-106); Potassium 3.5 mmol/L (3.5-5.1); Sodium Level 147 mmol/L (136-145)
[2017-11-12] MEDS: 0.9% Normal Saline 1,000 ML 100 ML IV ×2 (08:15→15:57)
--- NOTE | 2017-11-12 11:07 | CASEMGMT ---
Addendum entered by Bebe Freire 11/12/17 12:44: 1200 Pt is still out of the dept for testing. This RN CM will attempt later. Scott BENITEZ CM Original Note: This RN CM to room to complete CM assessment and pt is out of the dept for testing at this time. Will attempt again later. Scott BENITEZ CM
--- NOTE | 2017-11-12 11:22 | EKG12_ITS ---
Test Reason : Blood Pressure : / mmHG Vent. Rate : 077 BPM Atrial Rate : 077 BPM P-R Int : 180 ms QRS Dur : 088 ms QT Int : 392 ms P-R-T Axes : 036 006 250 degrees QTc Int : 443 ms Normal sinus rhythm Nonspecific T wave abnormality Abnormal ECG Confirmed by ZANE MITCHELL, ROSALIO ([id number]), supervising film or videotape editor ZUNILDA SAUCEDO ([id number]) on 11/16/2017 3:57:39 PM Referred By: BENITEZ Confirmed By:ROSALIO DEGROOT MD
--- NOTE | 2017-11-12 11:23 | PCM.PROGNOTE ---
<Taylor Isaacs - Last Filed: 11/12/17 11:46> Patient Problems: Active and Suspected Problems Syncope and collapse (Acute) Subjective: Patient seen and examined. Denies further dizziness, lightheadedness. States his stools continue to be dark in color. Denies chest pain, shortness of breath. States he feels well this morning. No acute events overnight. - Physical Exam General: Alert, Oriented x3, Cooperative, No apparent distress HEENT: Atraumatic, PERRLA, EOMI, Normocephalic Oral: Dry Mucosa Neck: Supple, No JVD, Negative Carotid Bruits Lungs: Clear to auscultation, Normal air movement Cardiovascular: Regular rate, Regular Rhythm, Normal S1, Normal S2, Murmur Abdomen: Bowel Sounds Present, Soft, Non Tender, Non-Distended Extremities: No clubbing, No cyanosis, No edema, Capillary Refill Less than 3 Seconds Skin: No rashes, No breakdown Musculoskeletal: No Tenderness to Palpation of Joints or Extremities Neurological: Cranial nerves II-XII grossly intact Psych/Mental Status: Normal Affect, Appropriate Vital Signs Temp Pulse Resp BP Pulse Ox 98.9 F 78 16 127/56 H 94 11/12/17 11:14 11/12/17 11:20 11/12/17 11:20 11/12/17 11:20 11/12/17 11:20 Oxygen Delivery Method Room Air Weight: 63.049 kg Body Mass Index (BMI) 23.8 Intake and Output for Last 24 Hours 11/10/17 11/11/17 11/12/17 23:59 23:59 23:59 Intake Total 4314.6 / 4314.6 486 / 486 Output Total 850 / 850 400 / 400 Balance 3464.6 / 3464.6 86 / 86 Laboratory Tests Past 24 Hrs 11/11/17 11/11/17 11/12/17 14:00 18:40 00:14 WBC RBC Hgb 8.5 L 8.8 L 7.8 L Hct 24.4 L 25.7 L 23.2 L MCV MCH MCHC RDW RDW Differential Plt Count MPV Immature Gran % (Auto) Neut % (Auto) Lymph % (Auto) Douglas % (Auto) Eos % (Auto) Baso % (Auto) Absolute Neuts (auto) Absolute Lymphs (auto) Total Counted Sodium Potassium Chloride Carbon Dioxide Anion Gap BUN Creatinine Estim Creat Clear Calc Est GFR (MDRD) Af Amer Est GFR (MDRD) Non-Af BUN/Creatinine Ratio Glucose Calcium 11/12/17 11/12/17 06:26 06:26 WBC 8.9 RBC 3.21 L Hgb 9.2 L Hct 27.9 L MCV 86.9 MCH 28.7 MCHC 33.0 RDW 14.6 RDW Differential 44.5 H Plt Count 119 L MPV 10.7 Immature Gran % (Auto) 0.200 Neut % (Auto) 63.3 Lymph % (Auto) 22.9 Douglas % (Auto) 10.0 Eos % (Auto) 3.4 Baso % (Auto) 0.2 Absolute Neuts (auto) 5.6 Absolute Lymphs (auto) 2.03 Total Counted Not Reportable Sodium 147 H Potassium 3.5 Chloride 116 H Carbon Dioxide 24.0 Anion Gap 7 BUN 24 H Creatinine 0.59 L Estim Creat Clear Calc 49.33 Est GFR (MDRD) Af Amer 168 Est GFR (MDRD) Non-Af 139 BUN/Creatinine Ratio 40.4 H Glucose 86 Calcium 7.4 L Medical Necessity - Tobacco Use Smoking Status: Never smoker Assessment/Plan Active and Suspected Problems Syncope and collapse (Acute) Patient is an 81-year-old male admitted 11/10/17 due to syncopal episode. He has a past medical history of hypertension and hyperlipidemia. 1. Acute blood loss anemia secondary to suspected upper GI bleed-Dr. Liu consulted. Continue IV PPI. Patient has received a total of 3 units packed red blood cells. Hemoglobin currently 9.2. Continue to monitor H&H. Patient underwent EGD which showed no obvious source of bleeding. Biopsy completed. Plan for colonoscopy as outpatient at a later date. 2. Syncope-suspect secondary to #1. Troponin negative ?4. Orthostatic vitals negative. Echocardiogram ordered, pending. 3. Episode of asystole/bradycardia occurred briefly during EGD. Consult cardiology. Troponin ordered from PACU, pending. 4. Hypertension-antihypertensive regimen on hold given hypotension. Resume home amlodipine and HCTZ regimen when appropriate. 5. Hyperlipidemia-continue statin. DVT prophylaxis-SCDs, pharmacologic prophylaxis contraindicated given acute bleed. This patient was seen by PAMELA Downing under the supervision of Dr. Dawn. <Mike Dawn - Last Filed: 11/12/17 16:07> Subjective: Has had 2 melanotic stools since EGD. - Physical Exam General: Alert, Cooperative, No apparent distress HEENT: Atraumatic, Normocephalic Neck: Supple, No JVD, Negative Carotid Bruits, Negative Hepatojugular Reflux Lungs: Clear to auscultation, Normal air movement, No rhonchi, No wheeze Cardiovascular: Regular rate, Regular Rhythm, Normal S1, Normal S2 Abdomen: Bowel Sounds Present, Soft, Non Tender, Non-Distended Extremities: No edema, Capillary Refill Less than 3 Seconds, No Calf Tenderness Skin: No rashes, No breakdown Psych/Mental Status: Normal Affect, Appropriate Vital Signs Temp Pulse Resp BP Pulse Ox 36.9 C 87 18 123/50 H 97 11/12/17 12:25 11/12/17 15:22 11/12/17 12:25 11/12/17 12:25 11/12/17 12:25 Oxygen Delivery Method Room Air Weight: 63.049 kg Body Mass Index (BMI) 23.8 Intake and Output for Last 24 Hours 11/10/17 11/11/17 11/12/17 23:59 23:59 23:59 Intake Total 4314.6 / 4314.6 986 / 986 Output Total 850 / 850 575 / 575 Balance 3464.6 / 3464.6 411 / 411 Laboratory Tests Past 24 Hrs 11/11/17 11/12/17 11/12/17 18:40 00:14 06:26 WBC RBC Hgb 8.8 L 7.8 L Hct 25.7 L 23.2 L MCV MCH MCHC RDW RDW Differential Plt Count MPV Immature Gran % (Auto) Neut % (Auto) Lymph % (Auto) Douglas % (Auto) Eos % (Auto) Baso % (Auto) Absolute Neuts (auto) Absolute Lymphs (auto) Total Counted Sodium 147 H Potassium 3.5 Chloride 116 H Carbon Dioxide 24.0 Anion Gap 7 BUN 24 H Creatinine 0.59 L Estim Creat Clear Calc 49.33 Est GFR (MDRD) Af Amer 168 Est GFR (MDRD) Non-Af 139 BUN/Creatinine Ratio 40.4 H Glucose 86 Calcium 7.4 L Troponin I 11/12/17 11/12/17 06:26 11:45 WBC 8.9 RBC 3.21 L Hgb 9.2 L Hct 27.9 L MCV 86.9 MCH 28.7 MCHC 33.0 RDW 14.6 RDW Differential 44.5 H Plt Count 119 L MPV 10.7 Immature Gran % (Auto) 0.200 Neut % (Auto) 63.3 Lymph % (Auto) 22.9 Douglas % (Auto) 10.0 Eos % (Auto) 3.4 Baso % (Auto) 0.2 Absolute Neuts (auto) 5.6 Absolute Lymphs (auto) 2.03 Total Counted Not Reportable Sodium Potassium Chloride Carbon Dioxide Anion Gap BUN Creatinine Estim Creat Clear Calc Est GFR (MDRD) Af Amer Est GFR (MDRD) Non-Af BUN/Creatinine Ratio Glucose Calcium Troponin I < 0.02 Assessment/Plan Patient seen and examined independently. I agree with the above note by the CREATIVE MANAGER. 1. ABLA: currently stable, from GI bleed. Follow up on H/H. 2. GI bleed: EGD negative. Still with melena. If count dropped, then patient will need to be transferred to tertiary facility for possible embolization, push enteroscopy. 3. Asystole: occurred during EGD. questionable 3rd degree HB. per cards: monitor, may need holter on discharge. Code Visit Inpatient E&M: 35783 Subs Hosp L2
--- NOTE | 2017-11-12 11:26 | OP.PCM_ITS ---
Report of Operation Date of Procedure: 11/12/17 Pre-Operative Diagnosis: UPPER GI BLEED Post-Operative Diagnosis: PRESUMED UPPER GI BLEED, NO OBVIOUS SOURCE, SELF LIMITED 3rd degree heart block TOWARDS END OF CASE Surgery/Procedure Performed:: EGD WITH BIOPSY media relations associate: None Type of Anesthesia:: MAC Anesthesiologist: Yayo Kevin - ASA3 Specimen's removed: gastric Description of Procedure: The patient was brought to the endoscopy suite. Sign in was performed verifying patient, site, planned procedure, critical nursing information, the patient was monitored with cardiac, pulse oximetric, and blood pressure monitoring devices. Monitored anesthetic care was provided for sedation. Following IV sedation and after the oropharynx was sprayed with Cetacaine spray , a video gastroscope was inserted in the oropharynx and advanced down the esophagus without difficulty. The scope was advanced through the stomach, through the pylorus through the duodenum to the proximal jejunum. the videogastroscope was advanced to the full length into the proximal jejunum and no signs of bleeding or abnormalities were seen. Jejunum or duodenum. The duodenal bulb was carefully inspected and no ulcerations were seen. As the scope was withdrawn. The stomach. There was possibly some mild gastritis but no sequelae of bleeding. There was mansfield nonbloody appearing bile in the stomach and duodenum. The scope was retroflexed and there were no abnormalities seen at the GE junction was somewhat lax lower esophageal sphincter. Approximately [address] the case, the patient was noted to have asystole on the registered nurse cardiac telemetry. Initially this was felt to be loss of the lead. The patient had no QRS complex noted on the monitor for approximately 12 seconds and then had return of a bradycardic rhythm returning rather promptly to a sinus rhythm. Oxygen saturation did not drop appreciably during this event. This was initially felt to be significant bradycardia but reviewing the ECG tracing afterwards with anesthesia was felt to be a third-degree heart block. No chest compressions or medications were given after this point. the scope was withdrawn. The esophagus was unremarkable. The patient was taken to recovery. An EKG and cardiac enzymes were obtained and medicine and cardiology were notified
--- NOTE | 2017-11-12 11:26 | PCM.PN.SRG ---
Patient Problems: Active and Suspected Problems Syncope and collapse (Acute) - Physical Exam General: Alert, Oriented x3, Cooperative Lungs: Clear to auscultation, Normal air movement Cardiovascular: Regular rate, Regular Rhythm Abdomen: Bowel Sounds Present, Soft, Non Tender Vital Signs Temp Pulse Resp BP Pulse Ox 98.9 F 78 16 127/56 H 94 11/12/17 11:14 11/12/17 11:20 11/12/17 11:20 11/12/17 11:20 11/12/17 11:20 Oxygen Delivery Method Room Air Weight: 63.049 kg Body Mass Index (BMI) 23.8 Intake and Output for Last 24 Hours 11/10/17 11/11/17 11/12/17 23:59 23:59 23:59 Intake Total 4314.6 / 4314.6 486 / 486 Output Total 850 / 850 400 / 400 Balance 3464.6 / 3464.6 86 / 86 Laboratory Tests Past 24 Hrs 11/11/17 11/11/17 11/12/17 14:00 18:40 00:14 WBC RBC Hgb 8.5 L 8.8 L 7.8 L Hct 24.4 L 25.7 L 23.2 L MCV MCH MCHC RDW RDW Differential Plt Count MPV Immature Gran % (Auto) Neut % (Auto) Lymph % (Auto) [place] % (Auto) Eos % (Auto) Baso % (Auto) Absolute Neuts (auto) Absolute Lymphs (auto) Total Counted Sodium Potassium Chloride Carbon Dioxide Anion Gap BUN Creatinine Estim Creat Clear Calc Est GFR (MDRD) Af Amer Est GFR (MDRD) Non-Af BUN/Creatinine Ratio Glucose Calcium 11/12/17 11/12/17 06:26 06:26 WBC 8.9 RBC 3.21 L Hgb 9.2 L Hct 27.9 L MCV 86.9 MCH 28.7 MCHC 33.0 RDW 14.6 RDW Differential 44.5 H Plt Count 119 L MPV 10.7 Immature Gran % (Auto) 0.200 Neut % (Auto) 63.3 Lymph % (Auto) 22.9 [place] % (Auto) 10.0 Eos % (Auto) 3.4 Baso % (Auto) 0.2 Absolute Neuts (auto) 5.6 Absolute Lymphs (auto) 2.03 Total Counted Not Reportable Sodium 147 H Potassium 3.5 Chloride 116 H Carbon Dioxide 24.0 Anion Gap 7 BUN 24 H Creatinine 0.59 L Estim Creat Clear Calc 49.33 Est GFR (MDRD) Af Amer 168 Est GFR (MDRD) Non-Af 139 BUN/Creatinine Ratio 40.4 H Glucose 86 Calcium 7.4 L Medical Necessity - Tobacco Use Smoking Status: Never smoker Assessment/Plan Active and Suspected Problems Syncope and collapse (Acute) GI bleed - no signs of upper GI bleeding The patient is currently receiving PRBC and has IV PPI ordered. Approximately 4[address] through the case, the patient was noted to have asystole on the cardiac specialist. Initially this was felt to be loss of the lead. The patient had no QRS complex noted on the monitor for approximately 12 seconds and then had return of a bradycardic rhythm returning rather promptly to a sinus rhythm. Oxygen saturation did not drop appreciably during this event. This was initially felt to be significant bradycardia but reviewing the ECG tracing afterwards with anesthesia was felt to be a third-degree heart block. No chest compressions or medications were given after this point. the scope was withdrawn. The esophagus was unremarkable. The patient was taken to recovery. An EKG and cardiac enzymes were obtained and medicine and cardiology were notified. We will plan for colonoscopy as an outpatient at a later date. If the patient has additional episodes of bleeding, would recommend tagged red cell scan
--- NOTE | 2017-11-12 14:54 | CON.PCM_ITS ---
Reason for Consult Date of Consultation: 11/12/17 Reason for Consultation: Syncopal episode History of Present Illness: The patient is a 81 year old M with no significant past medical history of hypertension and dyslipidemia was brought in to ER after he had a syncopal episode that lasted for about 1-2 minutes. History taken from the patient's family and patient himself. He has had no previous episodes in the past but this time patient stood up from chair and walked about 30 yards and suddenly felt lightheaded, warm feeling and he passed out. He also was diaphoretic as per his and daughter, his eyes rolled up and his face was contorted. There was no myoclonic jerks repeated tonic-clonic seizure-like activity. Into the emergency room was evaluated and it was felt that he should be admitted. When they were putting the IV in his heart rate apparently dropped into the 40s associated with a blood pressure drop as well. He had also complained of mild dizziness when he sat up. He denied any chest pain or palpitations and no paroxysmal nocturnal dyspnea or pedal edema. In ED, as per the nurse, he he had bradycardia episode, heart rate in 40s and blood pressure dropped to 70s and was diaphoretic but he did not pass out. His initial electrocardiogram in the emergency room demonstrated normal sinus rhythm with no acute changes. He was noted to have a hemoglobin of 11 which subsequently dropped to 7. It was felt that his syncope was likely secondary to an acute GI bleed. He underwent an upper endoscopy today and during the procedure was noted to have an episode of progressive sinus bradycardia followed by a long period of high-grade AV block. The patient subsequently recovered sinus rhythm. He did not need any CPR or intravenous atropine or epinephrine. He was brought back to the telemetry unit. Cardiology was consulted to further evaluate him. At this particular time he appears doing quite well. Past Medical History Allergies/Adverse Reactions: Allergies No Known Allergies Allergy (Verified 11/10/17 19:51) Home Medications: Ambulatory Orders Medication Instructions Recorded Aspirin [Aspirin, Baby] 162 mg PO DAILY@0800 11/10/17 Hydrochlorothiazide [Hctz] 25 mg PO DAILY 11/10/17 Simvastatin 5 mg PO DAILY 11/10/17 Amlodipine Besylate [Norvasc] 5 mg PO DAILY 11/11/17 DiphenhydrAMINE [Benadryl] 25 mg PO QHS PRN PRN 11/11/17 Past Medical History (Chronic Problems): Chronic Problems Hypertension (Chronic) Dyslipidemia (Chronic) - *Family History Paternal History Items: No pertinent history Smoking Status: Never smoker Alcohol: None Drugs: None Review of Systems - Review of Systems General: Denies: Fever, Night Sweats, Fatigue Cardiovascular: Reports: Dizziness. Denies: Chest Discomfort, Shortness of Breath, Orthopnea, PND, Peripheral Edema, Palpitations, Lightheadedness, Near Syncope, Syncope Respiratory: Denies: Cough, Sputum Production, Hemoptysis Gastrointestinal: Denies: Hematemesis, Hematochezia, Melena Genitourinary: Denies: Dysuria, Hematuria Skin: Denies: Rash Neurological: Reports: Dizziness Subjectve: Pleasant gentleman in no apparent distress looks pale. Objective: Vital Signs Temp Pulse Resp BP Pulse Ox 98.4 F 76 18 123/50 H 97 11/12/17 12:25 11/12/17 12:46 11/12/17 12:25 11/12/17 12:25 11/12/17 12:25 Oxygen Delivery Method Room Air Weight: 138 lb 15.988 oz Body Mass Index (BMI) 23.8 Intake and Output for Last 24 Hours 11/10/17 11/11/17 11/12/17 23:59 23:59 23:59 Intake Total 4314.6 / 4314.6 986 / 986 Output Total 850 / 850 575 / 575 Balance 3464.6 / 3464.6 411 / 411 General: Awake, Alert, Oriented x 3 HEENT: PERRL, EOMI, Sclera Non Icteric, Pallor Neck: Supple, Good ROM, No Lymph Node Enlargement Lungs: Clear to auscultation Cardiovascular: Regular Rhythm, Normal S1, Normal S2, No Murmurs, No Rubs, No Gallops Vascular: No Carotid Bruits, Normal Femoral Pulses, Normal Radial Pulses, Normal Dorsalis Pedal Pulse, Normal Posterior Tibial Pulses Abdomen: Bowel Sounds Present, Soft, Non Tender, No HSM, No Organomegaly Extremities: No Cyanosis, No Clubbing, No edema Neurological: No Focal Motor or Sensory Deficit 11/11/17 18:40: Hgb 8.8 L, Hct 25.7 L 11/12/17 00:14: Hgb 7.8 L, Hct 23.2 L 11/12/17 06:26: Sodium 147 H, Potassium 3.5, Chloride 116 H, Carbon Dioxide 24.0 , Anion Gap 7, BUN 24 H, Creatinine 0.59 L, Est GFR (MDRD) Af Amer 168, Est GFR (MDRD) Non-Af 139, BUN/Creatinine Ratio 40.4 H, Glucose 86, Calcium 7.4 L 11/12/17 06:26: WBC 8.9, RBC 3.21 L, Hgb 9.2 L, Hct 27.9 L, MCV 86.9, MCH 28.7, MCHC 33.0, RDW 14.6, RDW Differential 44.5 H, Plt Count 119 L, MPV 10.7, Immature Gran % (Auto) 0.200, Neut % (Auto) 63.3, Lymph % (Auto) 22.9, [place] % ( Auto) 10.0, Eos % (Auto) 3.4, Baso % (Auto) 0.2, Absolute Neuts (auto) 5.6, Total Counted Not Reportable 11/12/17 11:45: Troponin I < 0.02 Rhythm: Normal sinus rhythm. High-grade AV block noted during the procedure of GI endoscopy EKG: Normal sinus rhythm with rate of 60 bpm ECHO: Pending Assessment/Plan 1. Syncope It appears from the history that the syncope was initially due to an acute GI blood loss. It was associated with positional change as well as orthostatic changes. The GI blood loss appears to have stabilized and may have been precipitated by the nonsteroidal anti-inflammatory agent that he had previously consumed. At this time my recommendation would be to keep him well hydrated as well as his hemoglobin in the appropriate range and for him to be supplemented with iron therapy. An echocardiogram is being performed to assess his left ventricular function. 2. Paroxysmal high-grade AV block. The patient during the procedure was noted to have paroxysmal high-grade AV block. The etiology was not entirely clear and it is possible that this may also have contributed to his syncope but it would be unusual to have 2 reasons for this. I will therefore suggest that we continue to monitor him on telemetry and perhaps even obtain an outpatient 24-hour Holter monitor to see whether he has any more episodes of the high-grade AV block. If he does then he will be a candidate for permanent pacemaker. Once again an echocardiogram should be performed to assess his left ventricular function. 3. Hypertension His blood pressure appears to be under good control. Indeed with his syncope I would suggest that we hold back on his other current medications especially his amlodipine and hydrochlorothiazide and see how he does. Further recommendations will depend on his response to the above therapy. Thank you for allowing me to participate in the care of your patient. Please don't hesitate to call if any issues arise
[2017-11-12 16:29] LABS: Hematocrit 26.8 % (40-54); Hemoglobin 8.9 g/dl (13.0-16.5)
[2017-11-12] MEDS: Atorvastatin Calcium 10 MG Tablet 5 MG PO (22:08)
[2017-11-12 22:44] LABS: Hemoglobin 8.2 g/dl (13.0-16.5)
[2017-11-13] VITALS (10 sets, daily range): BP systolic 120–164; BP diastolic 45–57; PULSE 67–85; RESP 16–18; TEMP 36.7–37.1; O2SAT 97–100
[2017-11-13] MEDS: 0.9% Normal Saline 1,000 ML 100 ML IV (01:28)
[2017-11-13 05:52] LABS: Hematocrit 21.9 % (40-54); Hemoglobin 7.3 g/dl (13.0-16.5); Mean Corp Hgb Conc 33.3 g/gl (32-36); Mean Corpuscular Hgb 28.6 pg (27.0-32.0); Mean Corpuscular Volume 85.9 fL (80-94); Mean Platelet Vol. 9.4 fl (6.2-12.0); Platelet Count 102 K/mm3 (150-450); RBC Distribution Width CV 14.7 % (11.6-14.6); RBC Distribution Width SD 45.9 fl (35.1-43.9); Red Blood Count 2.55 M/mm3 (4.6-6.2); White Blood Count 8.4 K/mm3 (4.4-11.0)
[2017-11-13 06:07] LABS: Scan Indicated on CBC? Y/N NO
[2017-11-13 06:24] LABS: Anion Gap 3 (5-15); BUN 21 mg/dL (7-18); BUN/Creat Ratio 40.5 RATIO (10-20); Chloride 113 mmol/L (98-107); Creatinine, Serum 0.52 mg/dL (0.70-1.30); EST Glomerular Filtration Rate 163 mL/min (>60); Est Glom Filt Rate - Afr Amer 197 mL/min (>60); Estimated Creatinine Clearance 49.33 ml/min; Glucose 98 mg/dL (74-106); Potassium 3.7 mmol/L (3.5-5.1); Sodium Level 143 mmol/L (136-145)
--- NOTE | 2017-11-13 06:59 | PN.CARD_ITS ---
Subjectve: The patient was seen and evaluated. Appears to have done well overnight with no further cardiac episodes Objective: Vital Signs Temp Pulse Resp BP Pulse Ox 98.3 F 73 18 120/50 L 97 11/13/17 04:00 11/13/17 04:00 11/13/17 04:00 11/13/17 04:00 11/13/17 04:00 Oxygen Delivery Method Room Air Weight: 138 lb 15.988 oz Body Mass Index (BMI) 23.8 Orthostatic Vital Signs Start: 11/11/17 03:11 Freq: q24h Status: Active Protocol: Activity Type Activity Date Activity User E-Sign Co-Sign Detail Recorded Client Recorded Date Recorded By Document 11/13/17 04:00 HS [id number] 11/13/17 04:07 HS 11/13/17 04:00 Orthostatic Vitals Standing -Blood Pressure (90/60-120/80 mm Hg) 120/46 L -Extremity Use Left Arm -Pulse Rate (60-100 beats/min) 85 Sitting -Blood Pressure (90/60-120/80 mm Hg) 132/48 H -Extremity Use Left Arm -Pulse Rate (60-100 beats/min) 82 Lying -Blood Pressure (90/60-120/80 mm Hg) 120/50 L -Extremity Use Left Arm -Pulse Rate (60-100 beats/min) 73 Intake and Output for Last 24 Hours 11/11/17 11/12/17 11/13/17 23:59 23:59 23:59 Intake Total 4314.6 / 4314.6 986 / 986 1434.9 / 1434.9 Output Total 850 / 850 875 / 875 800 / 800 Balance 3464.6 / 3464.6 111 / 111 634.9 / 634.9 General: Awake, Alert, Oriented x 3 HEENT: PERRL, EOMI, Sclera Non Icteric Neck: Supple, Good ROM, No Lymph Node Enlargement Lungs: Clear to auscultation Cardiovascular: Regular Rhythm, Normal S1, Normal S2, No Murmurs, No Rubs, No Gallops Vascular: No Carotid Bruits, Normal Femoral Pulses, Normal Radial Pulses, Normal Dorsalis Pedal Pulse, Normal Posterior Tibial Pulses Abdomen: Bowel Sounds Present, Soft, Non Tender, No HSM, No Organomegaly Extremities: No Cyanosis, No Clubbing, No edema Neurological: No Focal Motor or Sensory Deficit 11/12/17 06:26: Sodium 147 H, Potassium 3.5, Chloride 116 H, Carbon Dioxide 24.0 , Anion Gap 7, BUN 24 H, Creatinine 0.59 L, Est GFR (MDRD) Af Amer 168, Est GFR (MDRD) Non-Af 139, BUN/Creatinine Ratio 40.4 H, Glucose 86, Calcium 7.4 L 11/12/17 11:45: Troponin I < 0.02 11/12/17 16:13: Hgb 8.9 L, Hct 26.8 L 11/12/17 22:23: Hgb 8.2 L 11/13/17 05:45: Sodium 143, Potassium 3.7, Chloride 113 H, Carbon Dioxide 27.0, Anion Gap 3 L, BUN 21 H, Creatinine 0.52 L, Est GFR (MDRD) Af Amer 197, Est GFR (MDRD) Non-Af 163, BUN/Creatinine Ratio 40.5 H, Glucose 98, Calcium 7.0 L 11/13/17 05:45: WBC 8.4, RBC 2.55 L, Hgb 7.3 L, Hct 21.9 L, MCV 85.9, MCH 28.6, MCHC 33.3, RDW 14.7 H, RDW Differential 45.9 H, Plt Count 102 L, MPV 9.4 Rhythm: Normal sinus rhythm with no arrhythmias noted EKG: ECHO: Normal ejection fraction Medical Necessity - Tobacco Use Smoking Status: Never smoker Assessment/Plan 1. Syncope It appears from the history that the syncope was initially due to an acute GI blood loss. It was associated with positional change as well as orthostatic changes. The GI blood loss appears to have stabilized and may have been precipitated by the nonsteroidal anti-inflammatory agent that he had previously consumed. At this time my recommendation would be to keep him well hydrated as well as his hemoglobin in the appropriate range and for him to be supplemented with iron therapy. Echo still pending 2. Paroxysmal high-grade AV block. The patient during the procedure was noted to have paroxysmal high-grade AV block. The etiology was not entirely clear and it is possible that this may also have contributed to his syncope but it would be unusual to have 2 reasons for this. I will therefore suggest that we continue to monitor him on telemetry and perhaps even obtain an outpatient 24-hour Holter monitor to see whether he has any more episodes of the high-grade AV block. If he does then he will be a candidate for permanent pacemaker. He has not had any further rhythm abnormalities on the progressive care unit and will continue to monitor him. Does not have any further arrhythmias he may need a Holter monitor as an outpatient. 3. Hypertension His blood pressure appears to be under good control. Indeed with his syncope I would suggest that we hold back on his other current medications especially his amlodipine and hydrochlorothiazide and see how he does. Further recommendations will depend on his response to the above therapy. Thank you for allowing me to participate in the care of your patient. Please don't hesitate to call if any issues arise
--- NOTE | 2017-11-13 07:18 | PCM.PN.SRG ---
Patient Problems: Active and Suspected Problems Syncope and collapse (Acute) Subjective: hungry, no further bleeding - Physical Exam General: Alert, Oriented x3, Cooperative Lungs: Clear to auscultation, Normal air movement Cardiovascular: Regular rate, No murmurs Abdomen: Bowel Sounds Present, Soft, Non Tender Vital Signs Temp Pulse Resp BP Pulse Ox 98.3 F 73 18 120/50 L 97 11/13/17 04:00 11/13/17 04:00 11/13/17 04:00 11/13/17 04:00 11/13/17 04:00 Oxygen Delivery Method Room Air Weight: 63.049 kg Body Mass Index (BMI) 23.8 Orthostatic Vital Signs Start: 11/11/17 03:11 Freq: q24h Status: Active Protocol: Activity Type Activity Date Activity User E-Sign Co-Sign Detail Recorded Client Recorded Date Recorded By Document 11/13/17 04:00 HS [id number] 11/13/17 04:07 HS 11/13/17 04:00 Orthostatic Vitals Standing -Blood Pressure (90/60-120/80) 120/46 L -Extremity Use Left Arm -Pulse Rate (60-100) 85 Sitting -Blood Pressure (90/60-120/80) 132/48 H -Extremity Use Left Arm -Pulse Rate (60-100) 82 Lying -Blood Pressure (90/60-120/80) 120/50 L -Extremity Use Left Arm -Pulse Rate (60-100) 73 Intake and Output for Last 24 Hours 11/11/17 11/12/17 11/13/17 23:59 23:59 23:59 Intake Total 4314.6 / 4314.6 986 / 986 1434.9 / 1434.9 Output Total 850 / 850 875 / 875 800 / 800 Balance 3464.6 / 3464.6 111 / 111 634.9 / 634.9 Laboratory Tests Past 24 Hrs 11/12/17 11/12/17 11/12/17 11:45 16:13 22:23 WBC RBC Hgb 8.9 L 8.2 L Hct 26.8 L MCV MCH MCHC RDW RDW Differential Plt Count MPV Sodium Potassium Chloride Carbon Dioxide Anion Gap BUN Creatinine Estim Creat Clear Calc Est GFR (MDRD) Af Amer Est GFR (MDRD) Non-Af BUN/Creatinine Ratio Glucose Calcium Troponin I < 0.02 11/13/17 11/13/17 05:45 05:45 WBC 8.4 RBC 2.55 L Hgb 7.3 L Hct 21.9 L MCV 85.9 MCH 28.6 MCHC 33.3 RDW 14.7 H RDW Differential 45.9 H Plt Count 102 L MPV 9.4 Sodium 143 Potassium 3.7 Chloride 113 H Carbon Dioxide 27.0 Anion Gap 3 L BUN 21 H Creatinine 0.52 L Estim Creat Clear Calc 49.33 Est GFR (MDRD) Af Amer 197 Est GFR (MDRD) Non-Af 163 BUN/Creatinine Ratio 40.5 H Glucose 98 Calcium 7.0 L Troponin I Medical Necessity - Tobacco Use Smoking Status: Never smoker Assessment/Plan Active and Suspected Problems Syncope and collapse (Acute) GI bleed - no signs of upper GI bleeding The patient is currently receiving PRBC and has IV PPI ordered. Approximately [address] the case, the patient was noted to have asystole on the phototypesetting equipment monitor. Initially this was felt to be loss of the lead. The patient had no QRS complex noted on the monitor for approximately 12 seconds and then had return of a bradycardic rhythm returning rather promptly to a sinus rhythm. Oxygen saturation did not drop appreciably during this event. This was initially felt to be significant bradycardia but reviewing the ECG tracing afterwards with anesthesia was felt to be a third-degree heart block. No chest compressions or medications were given after this point. the scope was withdrawn. The esophagus was unremarkable. The patient was taken to recovery. An EKG and cardiac enzymes were obtained and medicine and cardiology were notified. We will plan for colonoscopy as an outpatient at a later date. If the patient has additional episodes of bleeding, would recommend tagged red cell scan I am okay with the patient restarting his diet.
--- NOTE | 2017-11-13 08:55 | CASEMGMT ---
According to [facility] website, the following are in-network tertiary facilities: [facility], [facility], [facility], [facility], [facility], [facility], and . Scott BENITEZ CM
--- NOTE | 2017-11-13 10:10 | PCM.DC.SUM ---
<Taylor Isaacs - Last Filed: 11/13/17 10:17> Discharge Date and Diagnosis Date of Admission: 11/10/17 Date of Discharge: 11/13/17 - Primary Discharge Diagnosis Active and Suspected Problems 1. Acute blood loss anemia secondary to GI bleed 2. Syncope secondary to #1 3. Episode of high-grade AV block - Secondary Discharge Diagnosis Chronic Problems Hypertension (Chronic) Dyslipidemia (Chronic) Hospital Course and Treatment Imaging Results: Diagnostic Data Chest X-Ray 11/10/17 20:30 IMPRESSION: There are no acute findings. Electronically Signed: Wagner Jha MD at 20:58 EDT , Service support , Dr. Liu- Surgery Operations: None Procedures: EGD Summary of Care Provided: Patient is an 81-year-old male admitted 11/10/17 due to syncopal episode. He has a past medical history of hypertension and hyperlipidemia. 1. Acute blood loss anemia secondary to GI bleed-Dr. Liu consulted. Continue IV PPI. Patient has received a total of 5 units packed red blood cells. Patient underwent EGD which showed no obvious source of bleeding. Biopsy completed. Hemoglobin continues to drop into 7 range. Transfer to [facility] for further evaluation of source of acute blood loss. 2. Syncope-suspect secondary to #1. Troponin negative ?4. Orthostatic vitals negative. Echocardiogram ordered, not completed prior to discharge. 3. 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 Cardiology consulted. No further episodes. Echo ordered but not completed prior to discharge. If patient has recurrent episodes, permanent pacemaker should be considered. 4. Hypertension-Resume home amlodipine and HCTZ regimen when appropriate. 5. Hyperlipidemia-continue statin. General: Alert, Oriented x3, Cooperative, No apparent distress HEENT: Atraumatic, PERRLA, EOMI, Normocephalic Oral: Dry Mucosa Neck: Supple, No JVD, Negative Carotid Bruits Lungs: Clear to auscultation, Normal air movement Cardiovascular: Regular rate, Regular Rhythm, Normal S1, Normal S2, Murmur Abdomen: Bowel Sounds Present, Soft, Non Tender, Non-Distended Extremities: No clubbing, No cyanosis, No edema, Capillary Refill Less than 3 Seconds Skin: No rashes, No breakdown Musculoskeletal: No Tenderness to Palpation of Joints or Extremities Neurological: Cranial nerves II-XII grossly intact Psych/Mental Status: Normal Affect, Appropriate Patient seen and examined prior to discharge. Physical assessment as noted above. Patient is stable at time of discharge to [facility] for further GI evaluation. This patient was seen by PAMELA Downing under the supervision of Dr. Dawn. Home Medications: Medications to take at Discharge Aspirin [Aspirin, Baby] 162 mg PO DAILY@0800 11/10/17 Hydrochlorothiazide [Hctz] 25 mg PO DAILY 11/10/17 Simvastatin 5 mg PO DAILY 11/10/17 Amlodipine Besylate [Norvasc] 5 mg PO DAILY 11/11/17 DiphenhydrAMINE [Benadryl] 25 mg PO QHS PRN PRN 11/11/17 Primary Care Physician: Jerzy Hubbard MD [Primary Care Provider] - Disposition: Acute care Hospital Minutes spent on discharge:: 35 Patient Condition:: Stable Medical Necessity - Tobacco Use Smoking Status: Never smoker Meaningful Use Info Meaningful Use Diagnoses (Choose all that apply): None applicable <Mike Dawn - Last Filed: 11/13/17 12:37> Discharge Date and Diagnosis - Secondary Discharge Diagnosis Chronic Problems Hypertension (Chronic) Dyslipidemia (Chronic) Hospital Course and Treatment Operations: None Procedures: EGD Summary of Care Provided: Patient seen and examined independently. Agree with the above note by the nurse practitioner. The patient is a 81 year old Chelsea Bedolla with syncope and upper GI bleed. Patient did have acute blood loss anemia which initially required 3 units of packed red blood cells. Patient was seen in consultation by general surgery. EGD was performed on 12 November. No obvious source of his bleeding was identified but during the EGD patient did have what may been in asystole. Patient was seen in consultation by cardiology. But for further cardiac workup could be done patient did have further hematochezia and melena. Given the lack of appropriate resources at this facility is felt the patient be best suited at a tertiary facility where the patient could undergo potentially embolization coiling of a bleeding vessel or push enteroscopy. Patient is stable but patient's hemoglobin has dropped after his initial transfusion. Patient has been accepted at the [facility] and patient is going to be transferred there today. [] Discharge Diet: - - NPO Discharge Activity: Return to Normal Activity Disposition: [facility] Hospital Minutes spent on discharge:: 35 Patient Condition:: Stable Meaningful Use Info Meaningful Use Diagnoses (Choose all that apply): None applicable Code Visit Inpatient E&M: 08504 Disch Hosp
--- NOTE | 2017-11-13 10:17 | DS.PCM_ITS ---
<Taylor Isaacs - Last Filed: 11/13/17 10:17> Discharge Date and Diagnosis Date of Admission: 11/10/17 Date of Discharge: 11/13/17 - Primary Discharge Diagnosis Active and Suspected Problems 1. Acute blood loss anemia secondary to GI bleed 2. Syncope secondary to #1 3. Episode of high-grade AV block - Secondary Discharge Diagnosis Chronic Problems Hypertension (Chronic) Dyslipidemia (Chronic) Hospital Course and Treatment Imaging Results: Diagnostic Data Chest X-Ray 11/10/17 20:30 IMPRESSION: There are no acute findings. Electronically Signed: Wagner Jha MD at 20:58 EDT , Service support , Dr. Liu- Surgery Operations: None Procedures: EGD Summary of Care Provided: Patient is an 81-year-old male admitted 11/10/17 due to syncopal episode. He has a past medical history of hypertension and hyperlipidemia. 1. Acute blood loss anemia secondary to GI bleed-Dr. Liu consulted. Continue IV PPI. Patient has received a total of 5 units packed red blood cells. Patient underwent EGD which showed no obvious source of bleeding. Biopsy completed. Hemoglobin continues to drop into 7 range. Transfer to [facility] for further evaluation of source of acute blood loss. 2. Syncope-suspect secondary to #1. Troponin negative ?4. Orthostatic vitals negative. Echocardiogram ordered, not completed prior to discharge. 3. 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 Cardiology consulted. No further episodes. Echo ordered but not completed prior to discharge. If patient has recurrent episodes, permanent pacemaker should be considered. 4. Hypertension-Resume home amlodipine and HCTZ regimen when appropriate. 5. Hyperlipidemia-continue statin. General: Alert, Oriented x3, Cooperative, No apparent distress HEENT: Atraumatic, PERRLA, EOMI, Normocephalic Oral: Dry Mucosa Neck: Supple, No JVD, Negative Carotid Bruits Lungs: Clear to auscultation, Normal air movement Cardiovascular: Regular rate, Regular Rhythm, Normal S1, Normal S2, Murmur Abdomen: Bowel Sounds Present, Soft, Non Tender, Non-Distended Extremities: No clubbing, No cyanosis, No edema, Capillary Refill Less than 3 Seconds Skin: No rashes, No breakdown Musculoskeletal: No Tenderness to Palpation of Joints or Extremities Neurological: Cranial nerves II-XII grossly intact Psych/Mental Status: Normal Affect, Appropriate Patient seen and examined prior to discharge. Physical assessment as noted above. Patient is stable at time of discharge to [facility] for further GI evaluation. This patient was seen by PAMELA Downing under the supervision of Dr. Dawn. Home Medications: Medications to take at Discharge Aspirin [Aspirin, Baby] 162 mg PO DAILY@0800 11/10/17 Hydrochlorothiazide [Hctz] 25 mg PO DAILY 11/10/17 Simvastatin 5 mg PO DAILY 11/10/17 Amlodipine Besylate [Norvasc] 5 mg PO DAILY 11/11/17 DiphenhydrAMINE [Benadryl] 25 mg PO QHS PRN PRN 11/11/17 Primary Care Physician: Jerzy Hubbard MD [Primary Care Provider] - Disposition: Acute care Hospital Minutes spent on discharge:: 35 Patient Condition:: Stable Medical Necessity - Tobacco Use Smoking Status: Never smoker Meaningful Use Info Meaningful Use Diagnoses (Choose all that apply): None applicable <Mike Dawn - Last Filed: 11/13/17 12:37> Discharge Date and Diagnosis - Secondary Discharge Diagnosis Chronic Problems Hypertension (Chronic) Dyslipidemia (Chronic) Hospital Course and Treatment Operations: None Procedures: EGD Summary of Care Provided: Patient seen and examined independently. Agree with the above note by the nurse practitioner. The patient is a 81 year old Chelsea Bedolla with syncope and upper GI bleed. Patient did have acute blood loss anemia which initially required 3 units of packed red blood cells. Patient was seen in consultation by general surgery. EGD was performed on 12 November. No obvious source of his bleeding was identified but during the EGD patient did have what may been in asystole. Patient was seen in consultation by cardiology. But for further cardiac workup could be done patient did have further hematochezia and melena. Given the lack of appropriate resources at this facility is felt the patient be best suited at a tertiary facility where the patient could undergo potentially embolization coiling of a bleeding vessel or push enteroscopy. Patient is stable but patient 's hemoglobin has dropped after his initial transfusion. Patient has been accepted at the [facility] and patient is going to be transferred there today. [] Discharge Diet: - - NPO Discharge Activity: Return to Normal Activity Disposition: [facility] Minutes spent on discharge:: 35 Patient Condition:: Stable Meaningful Use Info Meaningful Use Diagnoses (Choose all that apply): None applicable Code Visit Inpatient E&M: 12011 Disch Hosp
[2017-11-13] MEDS: 0.9% NaCl Peripheral Flush Adult/Peds IV (10:31)
--- NOTE | 2017-11-13 11:29 | PCA ---
notified patients contact, Delphine via telephone of transport to [facility] with ETA for pickup.
== END 2017-11-13 12:24 | disposition short-term general hospital (02) | DRG 812 ==
LOC: ED 20:41 → PCU 21:56
PROVIDERS: Anesthesiology; Family Medicine; Nurse Practitioner Family; Surgery; Admitting Provider Internal Medicine; Emergency Provider Emergency Medicine; Family Provider Family Medicine; PCP Family Medicine
PROC: 0DJ08ZZ Inspection of Upper Intestinal Tract, Via Natural or Artificial Opening Endoscopic (ICD-10-PCS; CPT 43235; principal; 2017-11-12 10:55)
DX: D62 Acute posthemorrhagic anemia (principal); K92.1 Melena; K92.0 Hematemesis; I44.2 Atrioventricular block, complete; I95.1 Orthostatic hypotension; I10 Essential (primary) hypertension; E78.5 Hyperlipidemia, unspecified; Z79.82 Long term (current) use of aspirin; Z79.899 Other long term (current) drug therapy; E86.0 Dehydration; R00.1 Bradycardia, unspecified; K29.70 Gastritis, unspecified, without bleeding; Z87.891 Personal history of nicotine dependence
CPT/HCPCS: 36415; 71045; 80048; 80061; 83735; 84443; 84484; 85014; 85018; 85025; 85027; 85610; 85730; 86850; 86900; 86920; 88305; 88342; 93005; 93306; 97802; 99285; J7030; J7040; P9016; A4216; J2405; J3490